=== PATIENT | female | born 2000 | race Caucasian/White ===

== ENCOUNTER 2025-02-22 23:41 | Emergency (ER) | payer OTHER ==
[~2025-02-22] VITALS: Ht 160 cm; Wt 62.6 kg
[2025-02-23] MEDS ORDERED: ONDANSETRON HCL/PF 4 MG/2 ML VIAL ONE (00:28)
[2025-02-23] MEDS ORDERED: MORPHINE SULFATE INJ 4 MG/ML DISP.SYRIN ONE (00:29)
[2025-02-23] MEDS: MORPHINE SULFATE INJ 2 MG/ML DISP.SYRIN IV ONE (00:38)
[2025-02-23] MEDS: IV NS 0.9% 1,000 ML BAG IV ONE (00:38)
[2025-02-23] MEDS: ONDANSETRON HCL/PF 4 MG/2 ML VIAL IVP ONE (00:38)
[2025-02-23 00:41] LABS: PLATELET COUNT (AUTO) 223 K/uL (150-450); RED BLOOD CELL COUNT(AUTO) 4.28 MIL/uL (4.0-5.2); RED CELL DISTRIBUTION WIDTH 12.8 % (11.5-15.0); WHITE BLOOD COUNT (AUTO) 7.7 K/uL (4.3-11.0)
[2025-02-23 00:47] LABS: CALCIUM, SERUM 8.7 mg/dL (8.5-10.1); CREATININE 0.6 mg/dL (0.6-1.3); SODIUM SERUM 140.0 mmol/L (136-145); UREA NITROGEN, BLOOD 14.0 mg/dL (7-18)
[2025-02-23 00:53] LABS: ASPARTATE AMINOTRANSFERASE 12.0 U/L (15-37); TOTAL PROTEIN, SERUM 7.3 g/dL (6.4-8.2)
[2025-02-23] MEDS ORDERED: ACETAMINOPHEN 325 MG TABLET ONE (01:13)
[2025-02-23] MEDS: ACETAMINOPHEN 325 MG TABLET PO ONE (01:16)
[2025-02-23 01:52] LABS: APPEARANCE,URINE CLEAR (CLEAR); BLOOD, URINE NEGATIVE Ery/uL (NEGATIVE); LEUKOCYTE ESTERASE ,URINE NEGATIVE (NEGATIVE); NITRITE, URINE NEGATIVE (NEGATIVE); PREGNANCY TEST URINE QUAL NEGATIVE (NEGATIVE); UGLUCOSE NEGATIVE (NEGATIVE)
[2025-02-23 02:19] VITALS: BP 118/69; O2SAT 97
[2025-02-23] MEDS ORDERED: IBUP-1953 PO (15:37)
== END 2025-02-23 02:19 | disposition home or self-care (01) ==
LOC: ER 23:46
DX: N83.292 Other ovarian cyst, left side (principal); N83.291 Other ovarian cyst, right side; Z97.5 Presence of (intrauterine) contraceptive device
CPT/HCPCS: 99284; 74176; 96360; 76856; 85025; 80048; 83690; 80076; 84703; 81003; 36415; J7030; J2270; J2405

== ENCOUNTER 2025-02-23 12:50 | Emergency (ER) | payer OTHER ==
[~2025-02-23] VITALS: Ht 160 cm; Wt 62.6 kg
[2025-02-23 14:03] LABS: CALCIUM, SERUM 8.6 mg/dL (8.5-10.1); CREATININE 0.5 mg/dL (0.6-1.3); SODIUM SERUM 141.0 mmol/L (136-145); UREA NITROGEN, BLOOD 9.0 mg/dL (7-18)
[2025-02-23 14:08] LABS: ASPARTATE AMINOTRANSFERASE 12.0 U/L (15-37); TOTAL PROTEIN, SERUM 7.2 g/dL (6.4-8.2)
[2025-02-23 14:09] LABS: PLATELET COUNT (AUTO) 221 K/uL (150-450); RED BLOOD CELL COUNT(AUTO) 3.56 MIL/uL (4.0-5.2); RED CELL DISTRIBUTION WIDTH 12.7 % (11.5-15.0); WHITE BLOOD COUNT (AUTO) 7.5 K/uL (4.3-11.0)
[2025-02-23 14:09] LABS: APPEARANCE,URINE CLEAR (CLEAR); BLOOD, URINE NEGATIVE Ery/uL (NEGATIVE); LEUKOCYTE ESTERASE ,URINE NEGATIVE (NEGATIVE); NITRITE, URINE NEGATIVE (NEGATIVE); UGLUCOSE NEGATIVE (NEGATIVE)
[2025-02-23 14:14] LABS: PREGNANCY TEST URINE QUAL NEGATIVE (NEGATIVE)
[2025-02-23 14:31] LABS: ADD URINE CULTURE NO; SQUAMOUS EPITHELIAL CELL,UR 0-2 /HPF (None Seen)
[2025-02-23] MEDS ORDERED: IBUP-1953 PO (15:37)
[2025-02-23] MEDS: IV NS 0.9% 1,000 ML BAG IV ONE (16:30)
[2025-02-23 19:00] VITALS: BP 109/64; O2SAT 98
== END 2025-02-23 19:06 ==
LOC: ER 13:20
DX: D64.9 Anemia, unspecified (principal); N83.201 Unspecified ovarian cyst, right side; R10.31 Right lower quadrant pain; R06.02 Shortness of breath; R55 Syncope and collapse; Z97.5 Presence of (intrauterine) contraceptive device
CPT/HCPCS: 99291; 96360; 76856; 99292; 85025; 85027; 80048; 83605; 83690; 80076; 84703; 81001; 36415; 84484; 83880; J7030